=== PATIENT | female | born 1975 | race Asian ===

== ENCOUNTER → 2017-06-09 | Outpatient (CLI) | payer BC ==
[~2017-06-09] MED LIST: PREDNISONE20 MG PO
== END ==
LOC: MC.RAD 08:30
DX: Z12.31 Encounter for screening mammogram for malignant neoplasm of breast (principal)

== ENCOUNTER → 2018-06-26 | Outpatient (CLI) | payer BC | LOC: COL.RAD 13:02 | DX: M50.222 Other cervical disc displacement at C5-C6 level (principal); G56.92 Unspecified mononeuropathy of left upper limb ==

== ENCOUNTER 2018-08-24 22:38 | Emergency (ER) | payer BC ==
[~2018-08-24] VITALS: Ht 154.9 cm; Wt 54.5 kg
[2018-08-24 22:49] VITALS: BP 180/91; TEMP 98.2
[2018-08-24] MEDS ORDERED: PREDNISONE20 MG PO (23:48)
[2018-08-25 00:15] VITALS: PULSE 82
== END 2018-08-25 00:16 | disposition home or self-care (01) ==
LOC: COL.ER 22:38
DX: L50.9 Urticaria, unspecified (principal)
CPT/HCPCS: J1200; J7512

== ENCOUNTER → 2018-09-12 | Outpatient (CLI) | payer BC | LOC: MHCPAIN 08:34 | DX: G89.29 Other chronic pain (principal); M54.12 Radiculopathy, cervical region; M47.812 Spondylosis without myelopathy or radiculopathy, cervical region | CPT/HCPCS: G0463 ==

== ENCOUNTER 2018-10-10 08:00 | Outpatient (RCR) | payer BC | END 2018-12-24 | disposition home or self-care (01) | LOC: MKS.ESL.PT | DX: M47.22 Other spondylosis with radiculopathy, cervical region (principal); G89.29 Other chronic pain | CPT/HCPCS: G0283-GP ==

== ENCOUNTER → 2018-11-13 | Outpatient (CLI) | payer BC | LOC: MHCPAIN 08:44 | DX: G89.29 Other chronic pain (principal); M54.12 Radiculopathy, cervical region; M47.812 Spondylosis without myelopathy or radiculopathy, cervical region | CPT/HCPCS: G0463 ==

== ENCOUNTER → 2019-02-04 | Outpatient (CLI) | payer BC | LOC: MC.RAD 08:06 | DX: Z12.31 Encounter for screening mammogram for malignant neoplasm of breast (principal) ==